=== PATIENT | female | born 1960 | race Caucasian/White ===

== ENCOUNTER 2024-03-20 19:27 | Emergency (ER) | payer OTHER ==
[~2024-03-20] VITALS: Ht 157.5 cm; Wt 58.0 kg
[2024-03-20 19:30] VITALS: O2SAT 99
[2024-03-20 19:33] VITALS: BP 191/100; PULSE 93; RESP 18; TEMP 98.7; O2SAT 98
[2024-03-20 20:09] LABS: BASOPHILS % 1.6 % (0.0-2.0); EOSINOPHILS % 2.8 % (0.0-5.0); HEMATOCRIT. 31.8 % (36.0-48.0); HEMOGLOBIN. 10.3 g/dL (12.0-16.0); MEAN CORPUSCULAR HEMOGLOBIN 31.7 pg (28.0-32.0); MEAN CORPUSCULAR HGB CONC 32.5 g/dL (31.0-37.0); MEAN CORPUSCULAR VOLUME 97.4 fL (81.0-99.0); MONOCYTES % 6.9 % (2.0-8.0); NEUTROPHILS % 80.7 % (40.0-76.0); PLATELET 506 x1000/uL (130-400); RED BLOOD CELL COUNT 3.27 mill/uL (4.2-5.4); RED CELL DISTRIBUTION WIDTH 19.1 % (11.6-14.6); WHITE BLOOD COUNT 10.3 x1000/uL (4.5-11.0)
[2024-03-20 20:14] LABS: POTASSIUM 4.9 mEq/L (3.5-5.1)
[2024-03-20 20:15] LABS: CALCIUM 7.6 mg/dL (8.7-10.4)
== END 2024-03-20 22:00 | disposition home or self-care (01) ==
LOC: ER 19:27
DX: N18.6 End stage renal disease (principal); Z99.2 Dependence on renal dialysis
CPT/HCPCS: 36415; 71045; 80048; 85025; 93005; 99285

== ENCOUNTER 2024-03-20 22:05 | Emergency (ER) | payer OTHER ==
[~2024-03-20] VITALS: Ht 152.4 cm; Wt 58.0 kg
[2024-03-20 22:06] VITALS: O2SAT 99
[2024-03-20 22:11] VITALS: BP 157/88; PULSE 93; RESP 16; TEMP 98.4; O2SAT 99
== END 2024-03-20 23:56 | disposition home or self-care (01) ==
LOC: ER 22:05
DX: R68.89 Other general symptoms and signs (principal)
CPT/HCPCS: 99281

== ENCOUNTER 2024-03-20 23:57 | Emergency (ER) | payer OTHER ==
[~2024-03-20] VITALS: Ht 157.5 cm; Wt 66.0 kg
[2024-03-21 00:01] VITALS: PULSE 93; RESP 18; O2SAT 99
[2024-03-21 00:03] VITALS: BP 158/88; O2SAT 99
[2024-03-21 01:25] VITALS: TEMP 98.1
[2024-03-21] MEDS: ACETAMINOPHEN 325MG TABLET PO ONE (01:25)
== END 2024-03-21 01:29 | disposition home or self-care (01) ==
LOC: ER 23:57
DX: M79.18 Myalgia, other site (principal); N18.6 End stage renal disease; Z99.2 Dependence on renal dialysis
CPT/HCPCS: 99281